=== PATIENT | female | born 1955 | race Caucasian/White ===

== ENCOUNTER 2021-10-09 13:02 | Emergency (ER) | payer OTHER, SELFPAY ==
--- NOTE | ~2021-10-09 | XR_ITS ---
EXAMINATION: XR CHEST CLINICAL INFORMATION: Chest pain COMPARISON: None TECHNIQUE: 2 views of the chest were obtained. FINDINGS: The cardiac and mediastinal contours are normal. The lungs are clear. There is no pleural effusion or pneumothorax. There are degenerative changes of the spine. There are surgical clips in the left neck. XR/XR chest 2V IMPRESSION: No evidence for acute disease in the chest.
[2021-10-09 13:12] VITALS: BP 156/81; PULSE 93; RESP 19; TEMP 36.6; O2SAT 98; BMI 25.0
--- NOTE | 2021-10-09 13:14 | ECG_ITS ---
Test Reason : palpatations Blood Pressure : / mmHG Vent. Rate : 070 BPM Atrial Rate : 070 BPM P-R Int : 158 ms QRS Dur : 074 ms QT Int : 406 ms P-R-T Axes : 040 040 017 degrees QTc Int : 438 ms Normal sinus rhythm Normal ECG No previous ECGs available Referred By: Generic ED Physician Electronically Signed By:AJIT OJEDA MD
[2021-10-09 13:40] LABS: MANUAL DIFF FLAG NO
[2021-10-09 13:46] LABS: Basophils Percent Auto 0.6 % (0-2); Eosinophils Absolute Auto 0.1 X10*3/uL (0.0-0.4); Eosinophils Percent Auto 0.9 % (0-4); Hematocrit 40.1 % (37.0-47.0); Hemoglobin 13.5 g/dl (12.0-16.0); Imm Gran Abs Auto 0.01 X10*3/uL (0.00-0.03); Imm Gran Pct Auto 0.2 % (0.0-0.4); Lymphocytes Absolute Auto 1.4 X10*3/uL (1.2-4.9); Lymphocytes Percent Auto 26.6 % (20-40); Mean Corpuscular HGB Conc 33.7 g/dl (31.0-35.0); Mean Corpuscular Hemoglobin 31.6 pg (27.0-33.0); Mean Corpuscular Volume 93.9 fL (80.0-98.0); Mean Platelet Volume 9.8 fL (9.4-12.3); Monocytes Absolute Auto 0.5 X10*3/uL (0.1-1.2); Monocytes Percent Auto 8.8 % (2-11); Neutrophils Absolute Auto 3.4 x10*3/uL (2.0-8.3); Neutrophils Percent Auto 62.9 % (45-73); Platelet Count 219 X10*3/uL (160-400); Red Blood Count 4.27 X10*6/uL (4.20-5.50); Red Cell Distribution Width 13.3 % (11.0-16.0); White Blood Count 5.3 X10*3/uL (4.8-10.8)
[2021-10-09 13:57] LABS: Anion Gap 13 (12-20); Blood Urea Nitrogen 17 mg/dL (9-16); Calcium 9.8 mg/dL (8.4-10.2); Carbon Dioxide 25 mmol/L (22-29); Chloride 107 mmol/L (96-108); Creatinine Clr Calc Pharmacy 63.2; Estimated Glomerular Filt Rate > 60; Glucose Random 122 mg/dL (60-115); Potassium 4.3 mmol/L (3.3-5.1); Sodium 141 mmol/L (135-145)
[2021-10-09 14:05] LABS: Troponin-I High Sensitivity < 3.5 ng/L (<3.5-17.0)
[2021-10-09 21:04] LABS: Troponin-I High Sensitivity < 3.5 ng/L (<3.5-17.0)
--- NOTE | 2021-10-09 21:20 | ED.ARRPALP ---
HPI - Arrhythmia/Palpitations General Chief Complaint: Arrhythmia/Palpitations Stated Complaint: Heart Palpitations CP 10/06/21 Time Seen by Provider: 10/09/21 21:05 Source: patient Mode of arrival: ambulatory Limitations: no limitations History of Present Illness HPI narrative: 66-year-old female with a history hyper lipidemia, hyperthyroidism s/p removal, leaky valve presents with reports of episode of chest tightness, palpitations, feeling lightheaded anxious while working on Friday. 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 She tells me she had COVID in January of 2020. Since having COVID she has had chronic fatigue, shortness of breath and difficulty concentrating. 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 She tells me on Friday she had to work in the rehab side of the short-term rehab which is quite busy and physically demanding for her. She tells me she does not feel safe working there due to her symptoms of chronic fatigue shortness of breath and difficulty concentrating. While she was there she said she was feeling quite anxious and this is when she had the symptoms of chest tightness, palpitations and lightheadedness. The symptoms improved when she was home and she has been asymptomatic since then. She called her primary care doctor today to be seen as she felt it was time that she had a repeat stress test and echocardiogram and it was recommended she come to the emergency room for a evaluation. She tells me she did have an echocardiogram and stress test prior to COVID which she believes may have been several years ago and these more normal with the exception of a leaky valve. She denies any coronary artery disease Review of Systems Review of Systems: Yes all other systems are reviewed and are negative Constitutional: Constitutional: Reports no additional constitutional complaints, Denies body ache(s), Denies chills, Denies fever(s), Denies headache(s) and Denies weakness Eyes: Eyes: Reports no additional eye complaints and Denies change in vision ENT: Reports system reviewed and no additional complaints, except as documented, Reports dizziness, Denies headache(s), Denies nasal congestion, Denies nasal discharge and Denies neck pain Cardiovascular: Cardiovascular: Reports no additional cardiovascular complaints, Reports chest pain, Denies leg edema, Reports palpitations and Denies dyspnea Respiratory: Respiratory: Reports no additional respiratory complaints, Denies cough and Denies dyspnea Gastrointestinal: Gastrointestinal: Reports no additional gastrointestinal complaints, Denies abdominal pain, Denies diarrhea, Denies nausea and Denies vomiting Genitourinary: Genitourinary: Reports no additional female genitourinary complaints and Denies urinary incontinence Musculoskeletal: Musculoskeletal: Reports no additional musculoskeletal complaints, Denies back pain, Denies arthralgias, Denies joint swelling, Denies neck pain, Denies numbness and Denies tingling Integumentary/Breasts: Skin/Breast: Reports system reviewed and no additional complaints, except as docu and Denies rash Neurologic: Reports system reviewed and no additional complaints, except as documented, Denies Abnormal speech present, Reports dizziness, Denies headache(s), Denies numbness, Denies tingling and Denies weakness Psychiatric: Psychiatric: Reports anxiety Endocrine: Endocrine: Reports palpitations PMFSH Past Medical History Attestation statement: The following information was validated with the patient. Source: old records reviewed and nursing notes reviewed Social History Social History Advance Directives: No Advance Directives Information Provided: No Physical Exam Vital Signs: Vital Signs: Last Vital Signs Temp 98 F 10/09/21 13:12 Pulse 93 10/09/21 13:12 Resp 19 10/09/21 13:12 BP 156/81 H 10/09/21 13:12 Pulse Ox 98 10/09/21 13:12 O2 Del Method 10/09/21 13:12 BMI result Body Mass Index 25.0 Const: General: cooperative, healthy appearing, comfortable and no acute distress Orientation/consciousness: patient oriented x3 Limitations: no limitations HEENT: Head: Yes normal to inspection Ears: hearing grossly normal bilaterally General nose exam: Normal external nose present Face and sinus: Yes normal facial exam Mouth: Normal oral and palatal mucosa present Throat: Yes posterior oropharynx normal Eyes: General: appearance normal, both eyes and all related structures Pupils: Equal, round and reactive pupils present Neck: Neck: Yes normal visual inspection Chest: Chest palpation & inspection: normal inspection of the chest Resp: Effort & Inspection: normal respiratory effort Auscultation: clear to auscultation bilaterally Cardio: Rate: regular rate Rhythm: regular rhythm Peripheral pulses: Peripheral pulses 2+ throughout GI: Inspection: Yes normal to inspection Palpation (GI): Soft to palpation and nontender Auscultation: normal bowel sounds Back/Spine/Pelvis: Thoracic/Lumbar Spine: thoracic and lumbar spine normal to inspection Skin: General skin exam: no rashes or lesions noted Neuro: General: patient oriented x3, no focal motor deficits and normal sensation to monofilament Cranial nerves: Yes Equal, round and reactive pupils present Cognition (Neuro): normal cognition Speech: No Abnormal speech present Gait exam (Neuro): Normal gait present Motor exam (neuro): 5/5 motor strength present throughout Extrem: General: Yes normal to inspection, Yes no pedal edema and Yes no calf tenderness Course Course Course Narrative: Troponin x2 are negative. EKG and chest x-ray show no acute finding. Patient has been asymptomatic here.. She will follow-up outpatient with her primary care. She is requesting a work note to not work in a certain floor of short-term rehab with she is employed. I told her I could not give her this work note. She will have to follow up with primary care doctor for this. Reviewed worrisome signs and symptoms of when to return to the emergency department. Comfortable discharge home. MDM - Arrhythmia/Palpitations MDM Narrative Medical decision making narrative: 66-year-old female here with episode of chest tightness, palpitations, anxiety and feeling lightheaded while working on Friday. Patient has been asymptomatic since then. She was referred in to her primary care doctor when she call them today to be seen. She feels well. Will obtain EKG, labs and chest x-ray -low concern for ACS with troponin x2 which were negative, negative EKG, and patient being asymptomatic. Heart score 3 (age, HLD) -considered PE but no hypoxia, no tachypnea, no tachycardia, no clinical findings concerning for DVT Medical Records Attestation: I reviewed the patient's medical records. Lab Data Attestation: I reviewed the patient's lab results. Result diagrams: 10/09/21 13:35 10/09/21 13:35 Labs: Lab Results 10/09/21 10/09/21 10/09/21 Range/Units 13:34 13:35 13:35 WBC 5.3 (4.8-10.8) X10*3/uL RBC 4.27 (4.20-5.50) X10*6/uL Hgb 13.5 (12.0-16.0) g/dl Hct 40.1 (37.0-47.0) % MCV 93.9 (80.0-98.0) fL MCH 31.6 (27.0-33.0) pg MCHC 33.7 (31.0-35.0) g/dl RDW 13.3 (11.0-16.0) % Plt Count 219 (160-400) X10*3/uL MPV 9.8 (9.4-12.3) fL Immature Gran % (Auto) 0.2 (0.0-0.4) % Neut % (Auto) 62.9 (45-73) % Lymph % (Auto) 26.6 (20-40) % [place] % (Auto) 8.8 (2-11) % Eos % (Auto) 0.9 (0-4) % Baso % (Auto) 0.6 (0-2) % Lymph # (Auto) 1.4 (1.2-4.9) X10*3/uL [place] # (Auto) 0.5 (0.1-1.2) X10*3/uL Eos # (Auto) 0.1 (0.0-0.4) X10*3/uL Baso # (Auto) 0.0 (0.0-0.2) X10*3/uL Abs Immat Gran (auto) 0.01 (0.00-0.03) X10*3/uL Absolute Neuts (auto) 3.4 (2.0-8.3) x10*3/uL Absolute Nucleated RBC 0.000 (0.0-0.012) X10*3/uL Nucleated RBC % (auto) 0.0 (0.0-0.2) /100WBC Sodium 141 (135-145) mmol/L Potassium 4.3 (3.3-5.1) mmol/L Chloride 107 (96-108) mmol/L Carbon Dioxide 25 (22-29) mmol/L Anion Gap 13 (12-20) BUN 17 H (9-16) mg/dL Creatinine 0.82 (0.5-1.4) mg/dL Estim Creat Clear Calc 63.2 Estimated GFR > 60 Random Glucose 122 H (60-115) mg/dL Calcium 9.8 (8.4-10.2) mg/dL Troponin I High Sens < 3.5 (<3.5-17.0) ng/L 10/09/21 Range/Units 20:20 WBC (4.8-10.8) X10*3/uL RBC (4.20-5.50) X10*6/uL Hgb (12.0-16.0) g/dl Hct (37.0-47.0) % MCV (80.0-98.0) fL MCH (27.0-33.0) pg MCHC (31.0-35.0) g/dl RDW (11.0-16.0) % Plt Count (160-400) X10*3/uL MPV (9.4-12.3) fL Immature Gran % (Auto) (0.0-0.4) % Neut % (Auto) (45-73) % Lymph % (Auto) (20-40) % [place] % (Auto) (2-11) % Eos % (Auto) (0-4) % Baso % (Auto) (0-2) % Lymph # (Auto) (1.2-4.9) X10*3/uL [place] # (Auto) (0.1-1.2) X10*3/uL Eos # (Auto) (0.0-0.4) X10*3/uL Baso # (Auto) (0.0-0.2) X10*3/uL Abs Immat Gran (auto) (0.00-0.03) X10*3/uL Absolute Neuts (auto) (2.0-8.3) x10*3/uL Absolute Nucleated RBC (0.0-0.012) X10*3/uL Nucleated RBC % (auto) (0.0-0.2) /100WBC Sodium (135-145) mmol/L Potassium (3.3-5.1) mmol/L Chloride (96-108) mmol/L Carbon Dioxide (22-29) mmol/L Anion Gap (12-20) BUN (9-16) mg/dL Creatinine (0.5-1.4) mg/dL Estim Creat Clear Calc Estimated GFR Random Glucose (60-115) mg/dL Calcium (8.4-10.2) mg/dL Troponin I High Sens < 3.5 (<3.5-17.0) ng/L Imaging Data Chest x-ray: Attestation: I personally reviewed and interpreted this imaging study as follows: Radiologist's impression: [address] [address] XRay Report Signed Patient: Jane Shannon MR#: [id number] : 1955 Acct:[id number] Age/Sex: 66 / F ADM Date: 10/09/21 Loc: HO.ED Attending Dr: Ordering Physician: Generic ED Physician Date of Service: 10/09/21 Procedure(s): XR chest 2V Accession Number(s): [id number] cc: Generic ED Physician~ EXAMINATION: XR CHEST CLINICAL INFORMATION: Chest pain COMPARISON: None TECHNIQUE: 2 views of the chest were obtained. FINDINGS: The cardiac and mediastinal contours are normal. The lungs are clear. There is no pleural effusion or pneumothorax. There are degenerative changes of the spine. There are surgical clips in the left neck. XR/XR chest 2V IMPRESSION: No evidence for acute disease in the chest. ECG Data Attestation: I personally reviewed and interpreted this ECG as follows: ECG interpretation date: 10/09/21 ECG interpretation time: 13:20 Interpretation: Normal sinus rhythm with a rate of 70, normal [place], normal QRS Discharge Plan Discharge Clinical Impression: Palpitations, Anxiety, Atypical chest pain Patient Disposition: Home, Self-Care Instructions: Chest Pain (ED), Heart Palpitations (DC), Anxiety (ED) Additional Instructions: Your blood work, EKG and chest x-ray are reassuring. We have discussed that you are at low risk for a coronary event however due to your age you should follow-up with her primary care doctor and she may need additional testing outpatient. Return for symptoms are return Referrals: Physician,Unknown J [Primary Care Provider] - Stand Alone Forms: Work/School Release
== END 2021-10-09 22:23 | disposition home or self-care (01) ==
PROVIDERS: Emergency Provider Emergency Medicine
DX: R00.2 Palpitations (principal); R07.89 Other chest pain; F41.1 Generalized anxiety disorder; F43.0 Acute stress reaction; Z79.899 Other long term (current) drug therapy
CPT/HCPCS: 36415; 71046; 80048; 84484; 85025; 93005; 99283

== ENCOUNTER → 2022-04-30 09:09 | Outpatient (BNVA) | payer OTHER, SELFPAY | PROVIDERS: Visit Provider Internal Medicine Cardiovascular Disease | DX: R07.9 Chest pain, unspecified (principal); R00.2 Palpitations | CPT/HCPCS: 93005 ==

== ENCOUNTER → 2022-06-03 10:30 | Outpatient (REF) | payer OTHER, SELFPAY ==
--- NOTE | 2022-06-03 10:33 | CA_ITS ---
Acquisition Time: 2022-06-03 11:09:45 Total Exercise Time: 00:06:49 Test Indications: CP Medications: FOSAMAX ATORVASTATIN LEVOTHYROXINE Protocol: ELIAZAR Max HR: 148 BPM 96% of Pred: 153 BPM Max BP: 140/086 mmHG Max Work Load: 8.2 METS Exercise stress test with exercise 6 min 49 sec of Eliazar protocol, achieving > 90% MPHR, without anginal symptoms, without arrythmia, with normotensive response to execise, without EKG changes meeting criteria for ischemia, there are nonspecific ST changes noted in recovery in setting of baseline ST abnormality in leads III, aVF. Echo images obtained by [employer] at rest and immediately post peak exercise. Definity contrast used. Test reviewed with Dr Ferrera. Referred By: Hernán Lee Overread By: HELENA ANTUNEZ
== END ==
LOC: HO.CARD 10:30
PROVIDERS: Visit Provider Internal Medicine Cardiovascular Disease
DX: R07.9 Chest pain, unspecified (principal)
CPT/HCPCS: 93350; Q9957

== ENCOUNTER → 2022-06-19 08:50 | Outpatient (REF) | payer OTHER, SELFPAY ==
--- NOTE | 2022-06-19 08:52 | CA_ITS ---
Transthoracic Echocardiogram Patient (Last, First, Middle): Jane Shannon K Gender: Female Date of : 1955 Age: 67 Procedure Date: 06/19/2022 Procedure Type: Transthoracic Echocardiogram Location: OP Height: 162.56 cm Weight: 64.41 kg BSA: 1.69 m2 Heart Rate: 57 bpm BP: 122 / 70 mmHg Dimensional Engineer: ESTHER Referring MD: Hernán Lee MD Geometry Tutor: Hernán Lee MD Symptoms: R00.2 - Palpitations Study Quality: Adequate ECG Rhythm: Sinus Conclusions: - 1. Normal LV systolic function with impaired relaxation filling pattern 2. Normal cardiac valvular Doppler 3. Normal RV systolic pressure 4. No pericardial effusion Findings Left Ventricle Normal left ventricular size, thickness, and systolic function. The visually estimated ejection fraction is between 65-70%. Spectral Doppler is indicative of an impaired relaxation filling pattern. E/E prime ratio is between 8 and 15 consistent with indeterminate filling pressures. Peak GLS is -17.3% within normal limits Right Ventricle Normal right ventricular cavity size and systolic function. Atria Both atria are normal in size. There is no evidence of interatrial shunt. Aortic Valve The aortic valve structure and function is likely normal. There is no aortic valve stenosis. There is no aortic valve regurgitation. Mitral Valve There is mild anterior and posterior mitral leaflet thickening. There is trace mitral valve regurgitation. There is no mitral valve stenosis. Pulmonic Valve The pulmonic valve was not well visualized. Tricuspid Valve Likely normal tricuspid valve structure and function. There is trace tricuspid valve regurgitation. The right ventricular systolic pressure is normal. The right ventricular systolic pressure is 23 mmHg. Normal right atrial pressure. There is no evidence of pulmonary hypertension. Great Vessels All visible segments of the aorta are normal in size. The pulmonary artery was not well visualized. Venous The inferior vena cava is normal in size and collapses greater than 50% with inspiration. Pericardium/Pleural There is no evidence of pericardial effusion. Prior Study Comparison No prior study available for comparison. Measurements 2D Linear Measurements IVSd: 0.94 0.6-0.9/0.6-1.0 cm LVIDd: 4.21 3.9-5.3/4.2-5.9 cm LVIDd Index: 2.49 2.4-3.2/2.2-3.1 cm/m2 LVIDs: 2.75 2.0-3.6 cm LVPWd: 1.10 0.7-1.1 cm LA Diam: 3.30 2.7-3.8/3.0-4.0 cm LAIDs Index: 1.95 1.5-2.3 cm/m2 LV Mass: 176.18 67-162/88-224 g LV Mass Index: 104.25 43-95/49-115 g/m2 LVOT Diam: 1.90 3.0+(-)1.3 cm 2D Systolic Function EF 4C: 64.30 >55% EF 2C: 74.50 >55% EF BiP: 70.60 >55% Mitral Valve MV Pk E: 0.76 MV PK A: 0.84 MV Decel Time: 208.00 E/A: 0.90 E'Lateral: 7.29 E'Medial: 5.55 E/E' Med: 13.70 E/E' Lat: 10.50 PHT: 61.00 MVA PHT: 3.61 Decel Christian: 3.67 Aortic Valve AoV Pk Robert: 1.21 AoV Pk Grad: 6.00 FABRIZIO: 2.90 LVOT LVOT Pk Robert: 1.25 LVOT Mn Robert: 0.88 LVOT VTI: 0.32 LVOT Pk Grad: 6.00 LVOT Mn Grad: 4.00 LVOT Diam: 1.90 LVOT Area: 2.84 Diastolic Function MV Pk E: 0.76 MV Pk A: 0.84 E/A: 0.90 E'Medial: 5.55 E/E' Med: 13.70 E' Laterial: 7.29 E/E' Lat: 10.50 Right Ventricle TAPSE (mm): 17.10 TVS' Robert: 10.90 Tricuspid Valve TR Pk Robert: 2.22 TR Pk Grad: 20.00 RA Press: 3.00 RVSP: 23.00 Great Vessels Aorta Sinus of Valsalva: 2.90 2.0-3.5 cm Ao Asc: 3.40 2.1-3.4 cm Pulmonary Valve PV Pk Robert: 0.89 Peak PV Grad: 3.00 Updated in Other Vendor System with Status of Final Hernán Lee MD electronically signed on 06/19/2022 1:02:17 PM with status of Final
--- NOTE | 2022-06-19 08:52 | HM_ITS ---
Cardiac event monitor Indication: Palpitations Technique: Patient was hooked up to cardiac event monitor on 06/19/2022 for total period of 30 days. Compliance rate was 94% Findings: Baseline was normal sinus rhythm with 87% of time heart rate within normal limits. There were no significant pauses or AV block noted. There were rare PACs noted. There were few runs of fast supraventricular ectopy noted consistent with SVT at a heart rate above 150 beats per minute. Patient reported multiple events of irregular heartbeat and palpitations that correlated with SVT or PACs. Conclusion: 1. Baseline was normal sinus rhythm without significant pauses 2. Rare PACs and multiple short runs of SVT at 150 beats per minute 3. Patient reported palpitations symptoms correlated with SVTs of PAC MTDD
== END ==
LOC: HO.CARD 08:50
PROVIDERS: Visit Provider Internal Medicine Cardiovascular Disease
DX: R00.2 Palpitations (principal)
CPT/HCPCS: 93270; 93306; 93356

== ENCOUNTER → 2022-08-07 11:14 | Outpatient (BNVA) | payer OTHER, SELFPAY | PROVIDERS: PCP Internal Medicine; Visit Provider Internal Medicine Cardiovascular Disease ==

== ENCOUNTER 2024-09-07 12:30 | Outpatient (AMB) | payer OTHER, SELFPAY ==
--- NOTE | 2024-09-07 12:49 | A.OFFVIS_ITS ---
Vital Signs 09/07/24 12:50 Height 5 ft 4 in Weight 149 lb 14.629 oz BMI 25.7 BP 130/82 Blood Pressure Location Lt brachial Position Sitting Pulse 61 Intake Visit Reasons: 2 yr follow up Intake Note: 2 year follow-up with ekg c/o palpiations makes her very nervous when it happens Registered Vascular Technologist (Rvt) Required: No Allergies No Known Allergies Allergy (Verified 04/30/22 09:16) Medication List - Last Reconciled 09/07/24 by Hernán Lee MD alendronate (Fosamax) 70 mg PO QWEEK aspirin (Adult Aspirin Regimen) 81 mg PO DAILY atorvastatin 20 mg PO BEDTIME cholecalciferol (vitamin D3) 25 mcg PO DAILY levothyroxine 137 mcg PO DAILY omega-3 fatty acids 1,000 mg PO DAILY HPI Comments Details: Jane comes for follow-up. She says she has been having increasing symptoms of palpitations. She is very bothered by the symptoms. Symptoms happen randomly and some days happen in sequence every day and then subside and do not happen for few weeks. There was no clear pattern to it. She has stopped drinking caffeine as a result. However she is very bothered by the symptoms. Symptoms can last up to 5 minutes. Sometimes heart rate is elevated. She is very concerned about it. No recent blood work has been done including no thyroid profile. Otherwise she says she remains active and denies any exertional chest pain or shortness of breath. No orthopnea, PND, leg edema. No lightheadedness, syncope. [facility] Medical History Family history of coronary artery disease Hyperlipidemia Surgical History Hx of thymectomy Family History Father CAD (coronary artery disease) Mother Hyperlipemia Social History Patient Tobacco Use Status: Former Tobacco user Review of Systems Const Denies chills, Denies fatigue, Denies fever(s), Denies frequent falls, Denies weakness, Denies weight gain and Denies weight loss ENT Denies dizziness Card Denies chest pain, Denies leg edema, Denies lightheadedness, Reports palpitations, Reports dyspnea, Denies dyspnea on exertion, Denies orthopnea and Denies other (loss of consciousness) Resp Denies cough, Reports dyspnea and Denies dyspnea on exertion GI Denies hematochezia and Denies change in stool character Musc Denies abnormal gait, Denies muscle weakness, Denies numbness, Denies radiating pain into limb and Denies tingling Neuro Denies Abnormal speech present, Denies abnormal gait, Denies dizziness, Denies frequent falls, Denies numbness, Denies tingling and Denies weakness Endo Denies fatigue and Reports palpitations Physical Exam Vital Signs: Last Vital Signs Pulse 61 09/07/24 12:50 BP 130/82 09/07/24 12:50 BMI result Body Mass Index 25.7 Const General: cooperative, comfortable, no acute distress, alert, awake and Physically active Nutritional Appearance: average body habitus Orientation/consciousness: patient oriented x3 Limitations: no limitations HEENT Head: Yes atraumatic Neck Neck: Yes trachea midline, Yes supple and Yes no JVD Resp Effort & Inspection: normal respiratory effort Auscultation: clear to auscultation bilaterally Cardio Jugular venous distension: no JVD Palpation: normal PMI Rate: regular rate Rhythm: regular rhythm Heart sounds: S1 normal heart sound present, S2 normal heart sound present, no click, no gallops, no murmurs and no rubs Neuro General: patient oriented x3 and no focal motor deficits Speech: No Abnormal speech present Extrem General: Yes no clubbing, cyanosis or edema Psych Appearance: grossly normal Affect: Anxious affect present Office Procedures EKG Details: EKG shows normal sinus rhythm normal EKG at 61 beats per minute [id number], Complete Assessment & Plan Assessment & Plan (1) Cardiac arrhythmia: Code(s): I49.9 - Cardiac arrhythmia, unspecified Category: Medical Plan: Patient with increased symptoms of palpitation with no clear pattern to it. Symptoms can last up to 5 minutes and she has had history of SVT. We redisc ussed vagal maneuvers. She understands. However she is very concerned by it. We advised of pursuing smart phone based EKG device to see what arrhythmias she has. Will also give her PRN pill in the pocket approach with metoprolol. Avoidance of stimulants was discussed. She is very bothered by the symptoms. We discussed about stress mitigation strategies as well. Will follow up in the clinic in 1 year's time, sooner p.r.n.. Thank you for allowing me to partake in her care Coding Level of Care Code Est Pt Level 4 (57169) Complex EM visit Add On G2211 Diagnoses Cardiac arrhythmia I49.9 CPT Codes EKG - CPT: 87746-[id number], Complete ([id number])
[2024-09-07 12:50] VITALS: BP 130/82; PULSE 61; BMI 25.7
--- OUTSIDE RECORDS SUMMARY | 2024-09-07 14:42 | XMS_ITS | Clinical Summary ---
Author Organization [address] Address [address] [place] [phone] Phone Care Team Providers Care [employer] Matcher Name Role Phone Robert Caro MD Primary Care Provider Allergies Active Allergy Reactions Criticality Noted Date Comments Other 12/19/2017 Seasonal Allergies Medications atorvastatin (LIPITOR) 20 mg tablet Take 1 Tablet by mouth daily. 4 Active estradioL (ESTRACE) 0.01 % (0.1 mg/gram) vaginal cream Apply a pea-sized amount of cream with your finger into the vagina once a week at night. 4 Active calcium carbonate-vit D3-min 600 mg-10 mcg (400 unit) tablet Take 1 tablet by mouth daily. 1 Active cholecalciferol (VITAMIN D-3) 25 mcg (1,000 unit) capsule Take 1 capsule by mouth daily. 1 Active SUMAtriptan (IMITREX) 50 mg tablet May repeat dose once after 2 hours, if needed. 9 Active OMEGA-3 FATTY ACIDS-FISH OIL ORAL Take 1 Capsule by mouth daily. Active aspirin 81 mg EC tablet 1 TABLET DAILY Activ e glucosamine sulfate (GLUCOSAMINE ORAL) Take 1 Tablet by mouth daily. Active levothyroxine (SYNTHROID, LEVOTHROID) 137 mcg tablet TAKE 1 TABLET BY MOUTH ONCE DAILY IN THE MORNING BEFORE BREAKFAST 90 tablet 5 Active alendronate (FOSAMAX) 70 mg tablet Take 1 tablet (70 mg total) by mouth every 7 (seven) days. Take in the morning with a full glass of water, on an empty stomach, and do not take anything else by mouth or lie down for the next 30 min. 12 tablet 3 5 Active Active Problems Problem Noted Date Diagnosed Date Bunion 07/31/2021 Vitamin D insufficiency 02/14/2021 COVID-19 virus detected 02/26/2020 SVT (supraventricular tachycardia) ([facility] V24) 06/28/2014 Vasovagal syncope 01/14/2012 Osteoporosis 07/16/2011 Overview (04/06/2024): 02/19 T score spine -1.8 hip -0.6 Syncope 05/07/2011 Overview (04/06/2024): Positive tilt-table test 05/12 Osteoarthritis of finger 07/19/2009 Migraine headache 06/28/2008 Hyperlipidemia 03/04/2007 Hypothyroidism 02/06/2005 Overview (04/06/2024): graves disease s/p subtotal thyroidectomy Immunizations Name Administration Dates Next Due Influenza trivalent, 0.5mL, preservative free (Fluarix; FluLaval; Fluzone) ages 6mo and older (Afluria) 3 years and older 01/28/2012 Td Tetanus diptheria (Tdvax) 7yo and older 10/16 Surgical History Surgery Date Site/Laterality Comments OTHER SURGICAL HISTORY PROCEDURE: GA THYROIDECTOMY TOTAL/COMPLETE ESOPHAGOGASTRODUODENOSCOPY 02/15/20 PROCEDURE: GA ESOPHAGOGASTRODUODENOSCOPY TRANSORAL DIAGNOSTIC; COMMENT: hiatus hernia BREAST BIOPSY PROCEDURE: BX BREAST; PERC NEEDLE CORE W/IMAG GUID; COMMENT: many yrs ago fna ? which brst HYSTERECTOMY 2016 PROCEDURE: GA VAGINAL HYSTERECTOMY UTERUS 250 GM/<; COMMENT: Dr. Ramos with bladder suspension COLONOSCOPY 06/12/19 PROCEDURE: HISTORICAL COLONOSCOPY; COMMENT: normal LAPAROSCOPY DIAGNOSTIC / BIO PSY / ASPIRATION / LYSIS 01/22/20 PROCEDURE: PELVIS LAPAROSCOPY, DIAGNOSTIC; COMMENT: Laparoscopic bilateral salpingo-oophorectomy performed by Dr. Shin COLONOSCOPY 08/2016 PROCEDURE: HISTORICAL COLONOSCOPY; COMMENT: repeat 10 years Medical History Medical History Date Comments Migraine headache 06/28/2008 DX:Migraine he adache Hyperlipidemia 03/04/2007 DX:Hyperlipidemi a Mitral valve disorders(424.0) 02/06/2005 DX :Mitral valve disorders(424.0); COMMENT: mild mitral regurgitation, nl left ventricular function Chest pain, unspecified 02/06/2005 DX:Chest pain, unspecified; COMMENT: occurs episodically Esophageal reflux DX:Esophageal reflux Postsurgical hypothyroidism DX:P ostsurgical hypothyroidism Tobacco abuse 07/10/2010 DX:Tobacco abuse PPD positive DX:PPD positive Mitral valve disorders(424.0) 02/06/2005 DX :Mitral valve disorders(424.0) COVID-19 virus detected 02/26/2020 DX:COVID -19 virus detected Family History Medical History Relation Name Comments Other: Hyperthyroidism Brother x 2 Stroke Father [place], HTN, catara cts, hyperthyroidism, Alzheimer's Heart attack Mother hyperthyroidism Ovarian cancer Sister x 4 hyperthyroidi sm Glaucoma Neg Hx Relation Name Status Comments Brother x 2 Alive Father (Age 85) Mother (Age 85) Sister x 4 Alive Social History Tobacco Use Types Packs/Day Years Used Date Smoking Tobacco: Former Cigarettes Smokeless Tobacco: Never Alcohol Use Standard Drinks/Week Comments Not Currently 0 (1 standard drink = 0.6 oz pur e alcohol) Comments Unknown Sex and Gender Information Value Date Recorded Sex Assigned at Not on file Legal Sex Female 10:21 AM EST Gender Identity Not on file Sexual Orientation Not on file Obstetrics History Last Filed Vital Signs Vital Sign Reading Time Taken Comments Blood Pressure 139/86 11/19/2023 8:08 AM EDT Pulse 64 11/19/2023 8:08 AM EDT Temperature - - Respiratory Rate - - Oxygen Saturation - - Inhaled Oxygen Concentration - - Weight 66.2 kg (146 lb) 11/19/2023 8:08 AM EDT Height 165.1 cm (5' 5 ) 11/19/2023 8:08 AM EDT Body Mass Index 24.3 11/19/2023 8:08 AM EDT Plan of Treatment Upcoming Encounters Date Type Department Care Team (Late st Contact Info) Description 12/01/2024 8:30 AM EDT Office Visit Adult Medicine [address] [phone] Robert Caro MD [address] [place] [phone] 01/05/2025 7:30 AM EDT Appointment Radiology Department - [address] [phone] Health Maintenance Due Date Last Done Comments Pneumococcal Vaccine: 50+ Years (1 of 1 - PCV) 2005 Zoster Vaccines (1 of 2) 2005 DTaP,Tdap,and Td Vaccines (2 - Td or Tdap) 10/17/2015 10/16/2005 Cervical Cancer Screening: Pap Smear 02/19/2018 02/19/2017, 02/19/2017 Depression Screening 03/09/2022 Falls Risk Assessment 03/09/2022 Social Influencers of Health Screening 03/09/2022 COVID-19 Vaccine ( season) 2023 04/05/2021, 06/21/2020, 05/17/2020 Influenza Vaccine (Season Ended) 2024 01/28/2012 Breast Cancer Screening 12/29/2025 12/30/19, 12/30/2023, 12/24/2022, Additional history exists Colorectal Cancer Screening: Colonoscopy 09/24/2026 09/24/2016 Cholesterol Screening (Lipid Panel) 05/28/2028 05/28/2023 RSV Immunization Adult Patients (1 - 1-dose 75+ series) 2030 Osteoporosis Screening (Bone Density Screening) 01/30/2032 01/29/2022, 02/16/2020 Hepatitis C Screening Completed 09/15/2012 HIB Vaccines Aged Out No longer eligi ble based on patient's age to complete this topic HPV Vaccines Aged Out No longer eligi ble based on patient's age to complete this topic Hepatitis A Vaccines Aged Out No long er eligible based on patient's age to complete this topic Hepatitis B Vaccines Aged Out No long er eligible based on patient's age to complete this topic IPV Vaccines Aged Out No longer eligi ble based on patient's age to complete this topic MMR Vaccines Aged Out No longer eligi ble based on patient's age to complete this topic Meningococcal ACWY Vaccine Aged Out N o longer eligible based on patient's age to complete this topic Meningococcal B Vaccine Aged Out No l onger eligible based on patient's age to complete this topic RSV Immunization Patients Under 20 months Aged Out No longer eligible based on patient's age to complete this topic Varicella Vaccines Aged Out No longer eligible based on patient's age to complete this topic Procedures Procedure Name Priority Date/Time Associated Diagnosis Comments SCREENING MAMMOGRAPHY BI 2-VIEW BREAST INC CAD Routine 12/30/2023 7:57 AM EDT Encounter for screening mammogram for malignant neoplasm of breast LIPID PANEL Routine 05/28/2023 DXA BONE DENSITY STUDY 1+ SITS AXIAL SKEL Routine 01/29/2022 3:33 PM EDT Age-related osteoporosis without current pathological fracture HM HPV Routine 02/19/2017 HM COLONOSCOPY Routine 09/24/2016 HM HEPATITIS C SCREENING Routine 09/15/2012 from Last 3 Months or Most Recently Relevant to Health Maintenance Results * SCREENING MAMMOGRAPHY BI 2-VIEW BREAST INC CAD (12/30/2023 7:57 AM EDT) Anatomical Region Laterality Modality Radiographic Emilia ging 12/24/2022 7:48 AM EDT Narrative 12/30/2023 5:56 PM EDT This is a summary report. The complete report is available in the patient's medical record. If you cannot access the medical record, please contact the sending organization for a detailed fax or copy. Exam: Screening mammogram Findings: Digital bilateral full-field screening mammography is performed with tomosynthesis and interpreted with the aid of computer-aided detection. ??Comparison is made with 12/24/2022 and as far back as 12/07/2019. Breast parenchyma is heterogeneously dense, which may obscure small masses. ??No new suspicious mass, architectural distortion, or suspicious calcifications. Impression: No mammographic evidence of malignancy. BI-RADS 1 - negative [facility] [address] [id number] Procedure Note Stephanie Moseley MD - 01/27/2024 This is a summary report. The complete report is available in thepatient's medical record. If you cannot access the medical record, pleasecontact the sending organization for a detailed fax or copy. Exam: Screening mammogram Findings: Digital bilateral full-field screening mammography is performedwith tomosynthesis and interpreted with the aid of computer-aideddetection. Comparison is made with 12/24/2022 and as far back as12/07/2019. Breast parenchyma is heterogeneously dense, which may obscure smallmasses. No new suspicious mass, architectural distortion, or suspiciouscalcifications. Impression: No mammographic evidence of malignancy. BI-RADS 1 - negative [address] [id number] Robert Caro MD IMG XR PROCEDURES Final Res ult * (ABNORMAL) Lipid panel (05/28/2023) LDL/HDL Ratio 3 0 - 4 Triglycerides 134 0 - 150 mg/dL Cholesterol 212(A) 0 - 200 mg/dL HDL 81 >=40 mg/dL LDL Cholesterol 105(A) 0 - 100 mg/dL Blood Venous blood specimen / Unknown [facility] Provider LAB BLOOD ORDERABLES Jo-Ann l Result * DXA BONE DENSITY STUDY 1+ SITS AXIAL SKEL (01/29/2022 3:33 PM EDT) Anatomical Region Laterality Modality Bone Densitometr y 07/31/2021 11:1 2 AM EDT Narrative 01/29/2022 7:17 PM EDT BONE DENSITY SCAN (DEXA): FINDINGS: Lumbar Spine T-score is -2.1. ?? (SD relative to 20-29 y/o adult) Z-score is -0.2. ??(SD relative to age matched peers) This is considered osteopenia by WHO criteria. Left Hip T-score is -1.8. Z-score is -0.2. This is considered osteopenia by WHO criteria. Left Forearm T-score is -0.6. Z-score is 1.2. This is considered normal by WHO criteria. Comparison exam(s): As recent as 02/16/2020 and as far back as 10/06/2007. Lumbar spine: No statistically significant change compared with 2019. ??4.8% loss of bone mineral density compared with 2007, statistically significant at 95% confidence level. Left hip: 4.4% increase in bone mineral density compared with 2019, statistically significant at the 95% confidence level. ??5.2% loss of bone mineral density compared with 2007, statistically significant at the 95% confidence level. Left forearm: No statistically significant change compared with 2019. ??8.9% loss of bone mineral density compared with 2007, statistically significant at the 95% confidence level. Lateral survey view of the thoracolumbar spine shows stable contiguous mild anterior wedging of mid/lower thoracic vertebral bodies. ?? IMPRESSION: IMPRESSION: ?? Osteopenia by WHO criteria. The [facility] Department of Internal Medicine recommends using National Osteoporosis Foundation (NOF) guidelines in treatment decisions related to osteoporosis. NOF guidelines suggest considering treatment for postmenopausal women and men aged 50 or older presenting with the following: History of hip or vertebral fracture. T-score = -2.5 (DXA) at the femoral neck, total hip, or spine, after appropriate evaluation to exclude secondary causes. Low bone mass (T-score between -1.0 and -2.5 at the femoral neck or spine) AND a 10-year probability of a hip fracture = 3% OR a 10-year probability of a major osteoporosis-related fracture = 20% based on the [place]-adapted WHO algorithm Please note that all treatment decisions require clinical judgment and consideration of individual patient factors, including patient preferences, co-morbidities, previous drug use, risk factors not captured in the FRAX model (e.g., frailty, falls, vitamin D deficiency, increased bone turnover, interval significant decline in bone density) and possible under- or over-estimation of fracture risk by FRAX. Optional alternative screening schedule based on pelon Mcclain., [facility] April 18, 2011 for patients with osteopenia (based on hip BMD T-score) is as follows: * ??advanced osteopenia (T scores -2.00 to -2.49), BMD testing every year * ??moderate osteopenia (T scores -1.50 to -1.99), BMD testing every 5 years mild osteopenia or normal BMD (T scores -1.50 and higher), BMD testing every 15 years Procedure Note Stephanie Moseley MD - 05/05/2023 BONE DENSITY SCAN (DEXA): FINDINGS: Lumbar Spine T-score is -2.1. (SD relative to 20-29 y/o adult) Z-score is -0.2. (SD relative to age matched peers) This is considered osteopenia by WHO criteria. Left Hip T-score is -1.8. Z-score is -0.2. This is considered osteopenia by WHO criteria. Left Forearm T-score is -0.6. Z-score is 1.2. This is considered normal by WHO criteria. Comparison exam(s): As recent as 02/16/2020 and as far back as10/06/2007. Lumbar spine: No statistically significant change compared with 2019.4.8% loss of bone mineral density compared with 2007, statistically significant at 95%confidence level. Left hip: 4.4% increase in bone mineral density compared with 2019,statistically significant at the 95% confidence level. 5.2% loss of bone mineral density comparedwith 2007, statistically significant at the 95% confidence level. Left forearm: No statistically significant change compared with 2019.8.9% loss of bone mineral density compared with 2007, statistically significant at the 95%confidence level. Lateral survey view of the thoracolumbar spine shows stable contiguousmild anterior wedging of mid/lower thoracic vertebral bodies. IMPRESSION: IMPRESSION: Osteopenia by WHO criteria. The [facility] Department of Internal Medicine recommendsusing National Osteoporosis Foundation (NOF) guidelines in treatment decisions related toosteoporosis. NOF guidelines suggest considering treatment for postmenopausal women and menaged 50 or older presenting with the following: History of hip or vertebral fracture. T-score = -2.5 (DXA) at the femoral neck, total hip, or spine, afterappropriate evaluation to exclude secondary causes. Low bone mass (T-score between -1.0 and -2.5 at the femoral neck or spine)AND a 10-year probability of a hip fracture = 3% OR a 10-year probability of a majorosteoporosis-related fracture = 20% based on the [place]-adapted WHO algorithm Please note that all treatment decisions require clinical judgment andconsideration of individual patient factors, including patient preferences, co- morbidities,previous drug use, risk factors not captured in the FRAX model (e.g., frailty, falls, vitaminD deficiency, increased bone turnover, interval significant decline in bone density) andpossible under- or over-estimation of fracture risk by FRAX. Optional alternative screening schedule based on ivania Mcclain al., NEJMJanuary 2011 for patients with osteopenia (based on hip BMD T-score) is as follows: * advanced osteopenia (T scores -2.00 to -2.49), BMD testing every year * moderate osteopenia (T scores -1.50 to -1.99), BMD testing every 5years mild osteopenia or normal BMD (T scores -1.50 and higher), BMD testingevery 15 years Mary Conn MD IM DXA PROCEDURES Final Result * Cervical Cancer Screening: HPV (02/19/2017) [facility] Cervical Cancer Screening: HPV No interpretation , abstracted Result [facility] Historical Provider HEALTH MAINTENANCE Final Result * Colonoscopy (09/24/2016) [facility] Colonoscopy No interpretation , abstracted Anatomical Region Laterality Modality Other Result [facility] Provider HEALTH MAINTENANCE Final Result * Hepatitis C Screening (09/15/2012) [facility] Hepatitis C Screening Abstracted [facility] Provider HEALTH MAINTENANCE Final Result from Last 3 Months or Most Recently Relevant to Health Maintenance Insurance MEDICARE [employer] Care Teams Le[employer] Matcher Relationship Specialty Start Date End Date Robert Caro MD [address] [place] [address] PCP - General Internal Medicine 09/27/21
== END 2024-09-07 13:18 | disposition home or self-care (01) ==
LOC: HO.HCS 12:31
PROVIDERS: PCP Internal Medicine; Visit Provider Internal Medicine Cardiovascular Disease
DX: I49.9 Cardiac arrhythmia, unspecified (principal)
CPT/HCPCS: 93010; 99214; G2211

== ENCOUNTER → 2024-09-07 12:30 | Outpatient (BNVA) | payer OTHER, SELFPAY | PROVIDERS: PCP Internal Medicine; Visit Provider Internal Medicine Cardiovascular Disease | DX: I49.9 Cardiac arrhythmia, unspecified (principal) | CPT/HCPCS: 93005 ==